=== PATIENT | female | born 1955 | race Caucasian/White ===

== ENCOUNTER 2019-03-30 06:51 | Emergency (ER) | payer OTHER ==
[~2019-03-30] VITALS: Ht 160 cm; Wt 72.6 kg
[2019-03-30] MEDS ORDERED: SYNTHROID75 MCG PO (07:09)
[2019-03-30] MEDS ORDERED: METFORMIN HCL850 MG PO (07:09)
== END 2019-03-30 10:17 | disposition home or self-care (01) ==
LOC: ER 06:51
DX: S80.872A Other superficial bite, left lower leg, initial encounter (principal); S80.871A Other superficial bite, right lower leg, initial encounter; S50.372A Other superficial bite of left elbow, initial encounter; S50.371A Other superficial bite of right elbow, initial encounter; R21 Rash and other nonspecific skin eruption; W57.XXXA Bitten or stung by nonvenomous insect and other nonvenomous arthropods, initial encounter; Y93.89 Activity, other specified; Y92.89 Other specified places as the place of occurrence of the external cause; Y99.8 Other external cause status